=== PATIENT | male | born 1990 | race Two or more races ===

== ENCOUNTER 2022-04-23 10:01 | Emergency (ER) | payer MEDICAID ==
[~2022-04-23] VITALS: Ht 175.3 cm; Wt 56.7 kg
[2022-04-23 10:05] VITALS: BP 115/89
--- NOTE | 2022-04-23 10:15 | NUR ---
PATIENT IN ROOM 6. USING CRUTCHES
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
[2022-04-23] MEDS ORDERED: KETOROLAC 60 MG/2 ML VIAL IM ONE (10:28)
--- NOTE | 2022-04-23 10:30 | NUR ---
XRAY AT BEDSIDE
[2022-04-23] MEDS: KETOROLAC 60 MG/2 ML VIAL IM ONE (10:38)
--- NOTE | 2022-04-23 10:43 | NUR ---
ER AT BEDSIDE
[2022-04-23] MEDS ORDERED: ACET-8386 PO (11:01)
[2022-04-23] MEDS ORDERED: IBUP-2213 PO (11:01)
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
[2022-04-23 11:23] VITALS: BP 115/89
--- NOTE | 2022-04-23 11:23 | NUR ---
Patient discharged with v/s stable. Written and verbal after care instructions given and explained. Patient alert, oriented and verbalized understanding of instructions. Ambulatory with steady gait. All questions addressed prior to discharge. ID band removed. Patient advised to follow up with PMD. Rx of HYDROCODONE IBUPROFEN given. Patient educated on indication of medication including possible reaction and side effects. Opportunity to ask questions provided and answered.
== END 2022-04-23 11:23 | disposition home or self-care (01) ==
LOC: MED 10:01
DX: S82.842A Displaced bimalleolar fracture of left lower leg, initial encounter for closed fracture (principal); E11.9 Type 2 diabetes mellitus without complications; F17.200 Nicotine dependence, unspecified, uncomplicated; Z79.899 Other long term (current) drug therapy; Z98.890 Other specified postprocedural states; W17.89XA Other fall from one level to another, initial encounter; Y93.89 Activity, other specified; Y92.89 Other specified places as the place of occurrence of the external cause; Y99.8 Other external cause status
CPT/HCPCS: 29515; 73610; 96372; 99283; J1885; Q0092

== ENCOUNTER 2023-01-08 21:34 | Emergency (ER) | payer MEDICAID ==
[~2023-01-08] VITALS: Ht 175.3 cm; Wt 54.4 kg
[~2023-01-08 21:34] MED LIST: ACET-8905 PO; IBUP-2213 PO
[2023-01-08 21:47] VITALS: BP 144/100
--- NOTE | 2023-01-08 21:49 | NUR ---
RONIT CARLOS, OFFLOADED TO [facility]
[2023-01-08 22:25] VITALS: BP 144/100
--- NOTE | 2023-01-08 22:25 | NUR ---
AALIYAH FRANK, RAN OUT OF ER
[2023-01-08] MEDS ORDERED: IBUP-2213 PO (22:33)
--- NOTE | 2023-01-08 22:52 | NUR ---
PT RETURNED TO ER AND IS READY FOR DISCHARGE INSTRUCTIONS
--- NOTE | 2023-01-08 22:56 | NUR ---
PT IS REFUSING TO LEAVE AND REFUSES TO SIGN ACI
== END 2023-01-08 22:55 | disposition home or self-care (01) ==
LOC: MED 21:34
DX: S82.892A Other fracture of left lower leg, initial encounter for closed fracture (principal); E11.9 Type 2 diabetes mellitus without complications; Z79.1 Long term (current) use of non-steroidal anti-inflammatories (NSAID); Z79.891 Long term (current) use of opiate analgesic; Z98.890 Other specified postprocedural states; X58.XXXA Exposure to other specified factors, initial encounter; Y92.89 Other specified places as the place of occurrence of the external cause; Y93.89 Activity, other specified; Y99.8 Other external cause status
CPT/HCPCS: 73610; 99283

== ENCOUNTER 2024-06-04 11:17 | Emergency (ER) | payer MEDICAID ==
[~2024-06-04] VITALS: Ht 175.3 cm; Wt 55.4 kg
[2024-06-04 11:26] VITALS: BP 121/83; PULSE 115; RESP 18; TEMP 97; O2SAT 99
[2024-06-04] MEDS: NACL 0.9% 1,000 ML IV ONE (11:58)
[2024-06-04 12:10] LABS: ANION GAP 13.9 (8-16); CALCIUM 9.5 mg/dL (8.5-10.1); CARBON DIOXIDE 30.3 mmol/L (21-32); POTASSIUM 3.2 mmol/L (3.5-5.1)
[2024-06-04 12:12] LABS: BASOPHILS % (AUTO) 0.7 % (0.0-2.0); EOSINOPHILS # (AUTO) 0.1 K/uL (0-0.4); EOSINOPHILS % (AUTO) 0.8 % (0.0-4.0); HEMATOCRIT 43.5 % (36-52); HEMOGLOBIN 14.9 g/dL (12.0-18.0); LYMPHOCYTES # (AUTO) 1.3 K/uL (2.0-11.5); MEAN CORPUSCULAR HEMOGLOBIN 32 pg (27-31); MEAN CORPUSCULAR HGB CONC 34 g/dL (33-37); MEAN CORPUSCULAR VOLUME 92.3 fL (80-94); MONOCYTES # (AUTO) 0.6 K/uL (0.8-1.0); MONOCYTES % (AUTO) 8.8 % (1.7-9.3); NEUTROPHILS # (AUTO) 4.4 K/uL (1.8-7.7); NEUTROPHILS % (AUTO) 69.7 % (42.2-75.2); PLATELET COUNT (AUTO) 231 K/uL (140-450); RED BLOOD CELL COUNT(AUTO) 4.72 MIL/uL (4.20-6.10); RED CELL DISTRIBUTION WIDTH 12.6 % (11.6-13.7); WHITE BLOOD COUNT (AUTO) 6.3 K/uL (4.8-10.8)
[2024-06-04] MEDS: POTASSIUM CHLORIDE 10 MEQ TABER PO ONE (12:35)
[2024-06-04] MEDS ORDERED: INSU100I7 SUBQ (12:39)
[2024-06-04] MEDS ORDERED: HUM SUBQ (12:40)
[2024-06-04 16:35] VITALS: BP 117/84; PULSE 91; RESP 18; TEMP 98; O2SAT 99
== END 2024-06-04 16:35 | disposition short-term general hospital (02) ==
LOC: MED 11:17
DX: E10.9 Type 1 diabetes mellitus without complications (principal); R10.13 Epigastric pain; L98.499 Non-pressure chronic ulcer of skin of other sites with unspecified severity; Z20.822 Contact with and (suspected) exposure to COVID-19; R07.9 Chest pain, unspecified; F17.200 Nicotine dependence, unspecified, uncomplicated; F15.90 Other stimulant use, unspecified, uncomplicated; Z98.890 Other specified postprocedural states; Z79.899 Other long term (current) drug therapy
CPT/HCPCS: 36415; 71045; 80048; 82803; 82948; 85025; 87426; 96360; 99285; J7030; Q0092